=== PATIENT | female | born 1985 | race African-American/Black ===

== ENCOUNTER 2017-08-06 13:28 | Emergency (ER) | payer OTHER ==
[2017-08-06 14:32] VITALS: BP 153/100; PULSE 125; TEMP 98.6; BMI 39.5
--- NOTE | 2017-08-06 14:33 | PDOC ---
Rapid Medical Evaluation Time Seen by Provider: 08/06/17 14:28 Medical Evaluation: Allergies Allergy/AdvReac Type Severity Reaction Status Date / Time No Known Allergies Allergy Verified 08/06/17 14:28 08/06/17 14:29 I have performed a brief in-person evaluation of this patient. The patient presents with a chief complaint of: Anxiety w/ palpitations. Admits to 4 drink per day x months (hard liquor). Last drank yesterday at 9pm. Sxs started at 1am today. Seen at [facility] today and referred to ED. Has EKG on person w/ sinus tach to 105. No known RF for PE. ?anxiety vs ETOH withdrawal Pertinent physical exam findings:Tachy to 125, exam unremarkable otherwise I have ordered the following:labs including TSH and ETOH lvl The patient will proceed to the ED for further evaluation. 08/06/17 14:34
[2017-08-06 15:01] LABS: BASO % 0.7 % (0-2.0); HEMATOCRIT 42.6 % (32.4-45.2); HEMOGLOBIN 13.9 GM/dL (10.7-15.3); LYMPH % 11.3 % (8-40); MCHC 32.7 g/dl (32.0-36.0); MEAN CELL VOLUME 91.8 fl (80-96); MEAN PLT VOLUME 7.2 fl (7.5-11.1); MONO % 7.7 % (3.8-10.2); NEUT % 80.3 % (42.8-82.8); PLATELET COUNT 285 K/MM3 (134-434); RBC 4.64 M/mm3 (3.60-5.2); RDW 14.1 % (11.6-15.6); WHITE BLOOD COUNT 12.3 K/mm3 (4.0-10.0)
[2017-08-06 15:30] LABS: ALBUMIN 3.7 g/dl (3.4-5.0); ANION GAP 14 (8-16); BILIRUBIN,TOTAL 0.7 mg/dL (0.2-1.0); BLOOD UREA NITROGEN 7 mg/dL (7-18); CALCIUM 9.2 mg/dL (8.5-10.1); CHLORIDE 100 mmol/L (98-107); CO2 23 mmol/L (21-32); CREATININE 0.6 mg/dL (0.55-1.02); GLUCOSE,RANDOM 95 mg/dL (74-106); POTASSIUM 4.2 mmol/L (3.5-5.1); SGOT/AST 91 U/L (15-37); SGPT/ALT 59 U/L (12-78); SODIUM 137 mmol/L (136-145); TOT PROT 7.8 g/dl (6.4-8.2)
[2017-08-06 15:33] LABS: ALK PHOS 95 U/L (45-117)
--- NOTE | 2017-08-06 16:50 | PDOC ---
Attending Attestation - Resident Resident Name: Red Byers - ED Attending Attestation I have performed the following: I have examined & evaluated the patient, The case was reviewed & discussed with the resident, I agree w/resident's findings & plan, Exceptions are as noted - HPI HPI: 08/06/17 16:49 Palpitations/Anxiety - Physicial Exam PE: 08/06/17 16:49 VSS/ NAD - Medical Decision Making 08/06/17 16:[address] Byers's Assessment and Plan
[2017-08-06] MEDS ORDERED: chlordiazePOXIDE HCL 25 MG CAPSULE PO ONE (17:08)
--- NOTE | 2017-08-06 17:08 | PDOC ---
History of Present Illness - General Chief Complaint: Palpitations Stated Complaint: ABNORMAL EKG Time Seen by Provider: 08/06/17 14:28 History Source: Patient Exam Limitations: No Limitations - History of Present Illness Initial Comments: 08/06/17 16:57 The patient is a 32F with no PMH who presents to the ED with complaints of anxiety and alcohol withdrawal. The patient states that for the past 3-4 months she has been drinking 3-4 cocktails a day, each with 2-2.5 shots of vodka in them. She does not know why she started drinking. She states that her last drink was at 2100 last night. She has felt palpitations all day today and went to [facility] urgent care then sent to the ER. EKG in the urgent care was sinus tach. She has no history of anxiety. Past History - Past Medical History Allergies/Adverse Reactions: Allergies Allergy/AdvReac Type Severity Reaction Status Date / Time No Known Allergies Allergy Verified 08/06/17 14:28 Home Medications: Ambulatory Orders Cyclobenzaprine HCl [Flexeril -] 10 mg PO TID 07/16/16 Ibuprofen 800 mg PO QID PRN #20 tablet 07/16/16 Meloxicam [Mobic] 15 mg PO DAILY PRN 07/16/16 Lorazepam [Ativan] 1 mg PO TID #9 tablet MDD 3 08/06/17 - Suicide/Smoking/Psychosocial Hx Smoking History: Never smoked Hx Alcohol Use: No Review of Systems - Review of Systems Able to Perform ROS?: Yes Comments:: 08/06/17 17:24 GENERAL/CONSTITUTIONAL: No fever or chills. No weakness. HEAD, EYES, EARS, NOSE AND THROAT: No change in vision. No ear pain or discharge. No sore throat. GASTROINTESTINAL: No nausea, vomiting, diarrhea, constipation, or abdominal pain. GENITOURINARY: No dysuria, frequency, hematuria, or change in urination. CARDIOVASCULAR: Positive for palpitations. No chest pain or lightheadedness. RESPIRATORY: No cough, wheezing, shortness of breath, or hemoptysis. MUSCULOSKELETAL: No joint or muscle swelling or pain. No neck or back pain. SKIN: No rash or lesions. NEUROLOGIC: Positive for tremors "probably because of my drinking".No headache, numbness, tingling, weakness, loss of consciousness, or change in strength/ sensation. ENDOCRINE: No increased thirst. No abnormal weight change. HEMATOLOGIC/LYMPHATIC: No anemia, easy bleeding, or history of blood clots. ALLERGIC/IMMUNOLOGIC: No hives or skin allergy. Is the patient limited Sinhala proficient: No *Physical Exam - Vital Signs Last Vital Signs Temp Pulse Resp BP Pulse Ox 98.6 F 125 H 19 153/100 98 08/06/17 14:28 08/06/17 14:28 08/06/17 14:28 08/06/17 14:28 08/06/17 14:28 - Physical Exam Comments: 08/06/17 17:24 GENERAL: Well developed, well nourished. Awake and alert. No acute distress. HEENT: Normocephalic, atraumatic. Hearing grossly normal. Moist mucous membranes. PERRLA, EOMI. NECK: Supple. Full ROM. No JVD. CARDIOVASCULAR: Tachycardia with regular rhythm. No murmurs, rubs, or gallops. Distal pulses are 2+ and symmetric. PULMONARY: No evidence of respiratory distress. Lungs clear to auscultation bilaterally. No wheezing, rales or rhonchi. ABDOMINAL: Soft. Non-tender. Non-distended. No rebound or guarding. GENITOURINARY: No CVA tenderness bilaterally. MUSCULOSKELETAL: Normal range of motion at all joints. No bony deformities or tenderness. EXTREMITIES: No cyanosis. No clubbing. No edema. No calf tenderness. SKIN: Warm and dry. Normal capillary refill. No rashes. No jaundice. NEUROLOGICAL: Alert, awake, appropriate. Cranial nerves 2-12 intact. Normal speech. Gait is normal without ataxia. PSYCHIATRIC: Cooperative. Good eye contact. Appropriate mood and affect. Heart Score/ECG Review #1 General ECG Interpretation: Sinus Rhythm, Normal Rate, Normal Intervals, No acute ischemic changes Compared to previous ECG there are: Previous ECG unavail 08/06/17 17:22 Sinus tach 104 NSR T wave inversions in V3 with flattened t waves in V4 Rate 104 QRS 74 QTc 431 ED Treatment Course - LABORATORY CBC & Chemistry Diagram: 08/06/17 14:50 08/06/17 14:50 - ADDITIONAL ORDERS Additional order review: Laboratory Results 08/06/17 08/06/17 08/06/17 14:50 14:50 14:50 Sodium 137 Potassium 4.2 Chloride 100 Carbon Dioxide 23 Anion Gap 14 BUN 7 Creatinine 0.6 Creat Clearance w eGFR > 60 Random Glucose 95 Calcium 9.2 Total Bilirubin 0.7 AST 91 H ALT 59 Alkaline Phosphatase 95 Creatine Kinase 204 H Creatine Kinase Index 0.4 CK-MB (CK-2) < 1.000 Troponin I < 0.02 Total Protein 7.8 Albumin 3.7 TSH 2.23 Alcohol, Quantitative < 5.0 08/06/17 14:50 RBC 4.64 MCV 91.8 MCHC 32.7 RDW 14.1 MPV 7.2 L Neutrophils % 80.3 Lymphocytes % 11.3 Monocytes % 7.7 Eosinophils % 0.0 Basophils % 0.7 Medical Decision Making - Medical Decision Making 08/06/17 17:25 The patient is a 32F with no PMH who presents from an with concern for an anxiety attack and alcohol withdrawal. PE is negative and ROS indicates tremor with palpitations. Labs WNL. Upreg pending. Will administer librium and monitor closely for s/s of withdrawal. She is not interested in a detox facility. 08/06/17 18:50 Patient is not tachycardic anymore. She states she would like to be d/c. Will give ativan outpatient with PCP follow up. *DC/Admit/Observation/Transfer Diagnosis at time of Disposition: Palpitations - Discharge Dispostion Disposition: HOME Condition at time of disposition: Stable Admit: No - Prescriptions Prescriptions: Lorazepam [Ativan] 1 mg PO TID #9 tablet MDD 3 - Referrals Referrals: Sonny Jiménez [Primary Care Provider] - - Patient Instructions Printed Discharge Instructions: Anxiety and Panic Attacks (Alternative Therapy) , DI for Anxiety -- Adult Additional Instructions: Please return to the ER if symptoms persist, worsen, or new symptoms arise. Please follow up with your primary care physician in 2-3 days. Please return to the ER if you have any signs or symptoms of chest pain, shortness of breath, uncontrollable fever, chills, nausea, vomiting, numbness, tingling, or weakness in any part of your body, changes in vision, or slurred speech. Please take your medications as prescribed. - Post Discharge Activity
[2017-08-06] MEDS ORDERED: chlordiazePOXIDE HCL 25 MG CAPSULE ONE (17:56)
--- NOTE | 2017-08-13 13:24 | EKG ---
Test Reason : Blood Pressure : / mmHG Vent. Rate : 104 BPM Atrial Rate : 104 BPM P-R Int : 132 ms QRS Dur : 074 ms QT Int : 328 ms P-R-T Axes : 059 026 019 degrees QTc Int : 431 ms SINUS TACHYCARDIA NONSPECIFIC T WAVE ABNORMALITY ABNORMAL ECG NO PREVIOUS ECGS AVAILABLE Confirmed by EMY BORRERO MD ([id number]) on 08/13/2017 1:24:17 PM Referred By: Confirmed By:EMY BORRERO MD
== END 2017-08-06 19:03 | disposition home or self-care (01) ==
LOC: JER 13:28
DX: F41.0 Panic disorder [episodic paroxysmal anxiety] (principal); F10.230 Alcohol dependence with withdrawal, uncomplicated
CPT/HCPCS: 36415; 80053; 80307; 82550; 82553; 84443; 84484; 84703; 85025; 93005; 93010; 99282-25